=== PATIENT | female | born 1975 | race Two or more races ===

== ENCOUNTER 2021-03-02 17:46 | Emergency (ER) | payer OTHER ==
--- NOTE | 2021-03-02 18:37 | EDM.PDOC ---
ED HPI GENERAL MEDICAL PROBLEM - General Chief Complaint: Lower Extremity Injury/Pain Stated Complaint: RT KNEE INJURY Time Seen by Provider: 03/02/21 17:58 Source of Information: Reports: Patient History Limitations: Reports: No Limitations - History of Present Illness INITIAL COMMENTS - FREE TEXT/NARRATIVE: The patient presents with right knee pain and swelling. This started last night. The patient fell down some stairs. She has no other injuries. She did not hit her head or hurt her neck. The patient did have a prior injury to the right knee and had hardware in there but it got infected and needed to be removed. Onset: Sudden Duration: Day(s): (last night) Location: Reports: Lower Extremity, Right (Knee) Quality: Reports: Sharp Severity: Moderate Improves with: Reports: None Worsens with: Reports: None Associated Symptoms: Reports: No Other Symptoms Right Knee Pain Score (Numeric/FACES): 8 - Related Data Allergies Allergy/AdvReac Type Severity Reaction Status Date / Time No Known Allergies Allergy Verified 03/02/21 17:59 Home Meds: Home Meds Hydrocodone/Acetaminophen [Hydrocodone-Acetamin 5-325 mg] 1 - 2 each PO Q6H PRN #15 tablet 03/02/21 [Rx] Past Medical History - Past Health History Medical/Surgical History: Denies Medical/Surgical History Social & Family History - Tobacco Use Tobacco Use Status *Q: Never Tobacco User Second Hand Smoke Exposure: No - Caffeine Use Caffeine Use: Reports: None - Recreational Drug Use Recreational Drug Use: No Review of Systems - Review of Systems Review Of Systems: See Below Constitutional: Reports: No Symptoms Eyes: Reports: No Symptoms Ears: Reports: No Symptoms Nose: Reports: No Symptoms Mouth/Throat: Reports: No Symptoms Respiratory: Reports: No Symptoms Cardiovascular: Reports: No Symptoms GI/Abdominal: Reports: No Symptoms Genitourinary: Reports: No Symptoms Musculoskeletal: Reports: Other (Right knee pain and swelling) ED EXAM, GENERAL - Physical Exam Exam: See Below Exam Limited By: No Limitations General Appearance: Alert, No Apparent Distress Ears: Normal External Exam Nose: Normal Inspection Head: Atraumatic, Normocephalic Neck: Normal Inspection Respiratory/Chest: No Respiratory Distress Extremities: Other (Pain upon palpation to the right medial knee with edema. Good sensation and pulses distally.) Course - Vital Signs Last Recorded V/S: Last Vital Signs Temp 98.4 F 06/12/21 17:58 Pulse 119 H 03/02/21 17:58 Resp 20 03/02/21 17:58 BP 126/88 03/02/21 17:58 Pulse Ox 100 03/02/21 17:58 - Orders/Labs/Meds Orders: Active Orders 24 hr Category Date Time Status Knee Min 4V Rt [CR] Stat Exams 03/02/21 18:05 Taken Durable Medical Equipment for Discharge [DME for Oth 03/02/21 18:45 Ordered Discharge] [COMM] Stat - Re-Assessments/Exams Free Text/Narrative Re-Assessment/Exam: 03/02/21 18:37 I ordered an x-ray of her knee and it looks good. 03/02/21 18:46 I will get her in a knee immobilizer and give her something for pain. Departure - Departure Time of Disposition: 18:50 Disposition: Home, Self-Care 01 Condition: Good Clinical Impression: Fall Qualifiers: Encounter type: initial encounter Qualified Code(s): W19.XXXA - Unspecified fall, initial encounter Contusion of right knee Qualifiers: Encounter type: initial encounter Qualified Code(s): S80.01XA - Contusion of right knee, initial encounter - Discharge Information *PRESCRIPTION DRUG MONITORING PROGRAM REVIEWED*: Not Applicable *COPY OF PRESCRIPTION DRUG MONITORING REPORT IN PATIENT FAYE: Not Applicable Prescriptions: Hydrocodone/Acetaminophen [Hydrocodone-Acetamin 5-325 mg] 1 - 2 each PO Q6H PRN #15 tablet PRN Reason: Pain Referrals: PCP,Not In Area [Primary Care Provider] - Forms: ED Department Discharge Additional Instructions: Ice your knee for 15 minutes 3 times per day for 2 days. Try to elevate your knee above your heart as much as you can for 2 days. Take tylenol or motrin as needed for pain. If that does not help, try the hydrocodone. Wear the knee immobilizer to stabilize your knee to avoid further injury. Use crutches as needed. Follow up with your orthopedic surgeon at home if you are not better in 1 to 2 weeks. Sepsis Event Note (ED) - Evaluation Sepsis Screening Result: No Definite Risk - Focused Exam Vital Signs: Vital Signs Temp Pulse Resp BP Pulse Ox 03/02/21 17:58 98.4 F 119 H 20 126/88 100 - My Orders Last 24 Hours: My Active Orders 03/02/21 18:05 Knee Min 4V Rt [CR] Stat 03/02/21 18:45 Durable Medical Equipment for Discharge [DME for Discharge] [COMM] Stat - Assessment/Plan Last 24 Hours: My Active Orders 03/02/21 18:05 Knee Min 4V Rt [CR] Stat 03/02/21 18:45 Durable Medical Equipment for Discharge [DME for Discharge] [COMM] Stat
--- NOTE | 2021-03-03 12:46 | CR ---
Right knee: 4 views of the right knee were obtained. Comparison: No prior knee study is available. Medial and lateral joint spaces are fairly well preserved. Slight areas of sclerosis are seen within the proximal tibia which are most likely old. Large joint effusion is present. No discrete fracture or dislocation is seen. Impression: 1. Large joint effusion. 2. Other findings believed to be nonacute as described above. Diagnostic code #2
== END 2021-03-02 19:10 | disposition home or self-care (01) ==
LOC: JD.ED 17:46
DX: S80.01XA Contusion of right knee, initial encounter (principal); W10.9XXA Fall (on) (from) unspecified stairs and steps, initial encounter
CPT/HCPCS: 73564-26-RT; 73564-RT; 99283; 99283-25